=== PATIENT | male | born 1955 | race Two or more races ===

== ENCOUNTER 2023-11-25 17:27 | Emergency (ER) | payer MEDICARE, OTHER ==
[~2023-11-25] VITALS: Ht 175.3 cm; Wt 70.0 kg
[2023-11-25 17:45] VITALS: O2SAT 98
[2023-11-25 18:29] LABS: BASOPHILS % 0.2 % (0.0-2.0); EOSINOPHILS % 0.7 % (0.0-5.0); HEMATOCRIT. 42.2 % (42.0-52.0); LYMPHOCYTES % 12.5 % (20.0-50.0); MEAN CORPUSCULAR HEMOGLOBIN 30.1 pg (28.0-32.0); MEAN PLATELET VOLUME 7.9 fl (7.4-10.4); MONOCYTES % 1.2 % (2.0-8.0); NEUTROPHILS % 85.4 % (40.0-76.0); PLATELET 205 x1000/uL (130-400); RED BLOOD CELL COUNT 4.64 mill/uL (4.7-6.1); RED CELL DISTRIBUTION WIDTH 15.4 % (11.6-14.6); WHITE BLOOD COUNT 8.8 x1000/uL (4.5-11.0)
[2023-11-25 18:36] LABS: CHLORIDE 113 mEq/L (98-107); POTASSIUM 2.9 mEq/L (3.5-5.1); SODIUM 143 mEq/L (136-145)
[2023-11-25 18:37] LABS: CARBON DIOXIDE 21 mEq/L (21-32)
[2023-11-25 18:38] LABS: CALCIUM 6.1 mg/dL (8.7-10.4)
[2023-11-25 18:42] LABS: CREATININE 0.7 mg/dL (0.6-1.3); GLUCOSE 153 mg/dL (70-105); UREA NITROGEN BLOOD 15 mg/dL (9-23)
[2023-11-25 18:44] LABS: TROPONIN I HIGH SENSITIVITY 8 ng/L (3.0-53)
[2023-11-25] MEDS: IPRATROPIUM/ALBUTEROL 0.5-3(2.5)MG/3ML NEB HHN ONE (20:55)
[2023-11-25] MEDS ORDERED: IOHEXOL-350 100 ML BOTTLE ONE (22:59)
[2023-11-25] MEDS: DEXAMETHASONE 2MG TABLET PO NR (23:23)
[2023-11-26 00:16] VITALS: BP 126/70; PULSE 82; RESP 16; TEMP 98.5
== END 2023-11-26 00:14 | disposition left against medical advice (07) ==
LOC: EDBD 17:27 → ER 17:27
DX: I71.10 Thoracic aortic aneurysm, ruptured, unspecified (principal); J44.9 Chronic obstructive pulmonary disease, unspecified; I50.9 Heart failure, unspecified
CPT/HCPCS: 99285; 71275; 71045; 80048; 83880; 85025; 85379; 84484; 36415; 93005; Q9967; J8540